=== PATIENT | male | born 1980 | race Hispanic/Latino ===

== ENCOUNTER 2023-06-28 09:53 | Emergency (ER) | payer SELFPAY ==
[2023-06-28] VITALS (20 sets, daily range): BP systolic 123–149; BP diastolic 73–100; PULSE 62–93; RESP 13–22; TEMP 36.3–36.9; O2SAT 97–100
--- NOTE | 2023-06-28 10:06 | ECG_ITS ---
Measurements Intervals [place] Rate: 78 P: 44 MD: 149 QRS: 28 QRSD: 102 T: 45 QT: 360 QTc: 411 Interpretive Statements SINUS RHYTHM INCOMPLETE RIGHT BUNDLE BRANCH BLOCK BORDERLINE ECG NO PREVIOUS ECG AVAILABLE FOR COMPARISON Electronically Signed On 06-28-2023 16:53:33 CDT by Chris Campbell D.O.
[2023-06-28 10:23] LABS: Basophils Percent Auto 0.4 % (0.2-1.2); Eosinophils Absolute Auto 0.1 K/mm3 (0-0.3); Eosinophils Percent Auto 1.4 % (0-4.4); Hematocrit 41.3 % (42.0-52.0); Hemoglobin 13.9 g/dL (14.0-18.0); Immature Granulocyte Absolute 0.01 K/mm3 (0.00-0.031); Immature Granulocyte Percent A 0.2 % (0-0.5); Lymphocytes Absolute Auto 1.35 K/mm3 (0.9-3.2); Lymphocytes Percent Auto 26.7 % (18.3-44.2); Mean Corpuscular HGB Conc 33.7 g/dl (32-36); Mean Corpuscular Hemoglobin 31.7 pg (26-34); Mean Corpuscular Volume 94.3 fl (80-100); Mean Platelet Volume 10.9 fl (7.4-10.4); Monocytes Absolute Auto 0.4 K/mm3 (0.1-0.6); Monocytes Percent Auto 7.5 % (2.6-8.5); Neutrophils Absolute Auto 3.2 K/mm3 (1.3-6.7); Neutrophils Percent Auto 63.8 % (45.5-73.1); Platelet Count Result 231 k/mm3 (150-375); Red Blood Count 4.38 M/mm3 (4.6-6.20); Red Cell Distribution Width 13.1 % (11.5-14.5); White Blood Count 5.1 K/mm3 (4.5-10.0)
[2023-06-28 10:35] LABS: Alanine Aminotransferase 24 U/L (6-50); Albumin Level 4.2 g/dL (3.5-5.1); Alkaline Phosphatase 81 U/L (38-126); Anion Gap 10 mmol/L (8-16); Aspartate Amino Transferase 32 U/L (17-59); Bilirubin,Total 0.5 mg/dL (0.2-1.3); Blood Urea Nitrogen 10 mg/dL (9-20); Calcium 8.7 mg/dL (8.4-10.2); Carbon Dioxide 22 mmol/L (22-30); Chloride 107 mmol/L (98-107); Estimated CRCL calculation 125 ml/min; Estimated Glomerular Filt Rate > 60; Glucose 122 mg/dL (65-110); Potassium 4.1 mmol/L (3.4-5.0); Sodium 139 mmol/L (137-145)
--- NOTE | 2023-06-28 11:10 | ED.DIZZY ---
HPI - Dizziness General Chief Complaint: Dizziness Stated Complaint: dizzy Time Seen by Provider: 06/28/23 11:10 Source: patient and family (friend) Mode of arrival: ambulatory Limitations: no limitations History of Present Illness HPI Narrative: Patient is a 43-year-old male who denies any past medical history presents emergency department today ambulatory with a steady gait with a friend for evaluation of dizziness that is worse with certain movements of his head. Patient states has been going on for approximately 3 weeks now and he has also had elevated blood pressure. He does not have a primary care provider. Denies any known history of hypertension or being on medications. Patient denies any vomiting, visual changes, numbness or tingling upper lower extremities, headache, chest pain, shortness and breath for, fever, chills, ear pain. 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 He states that this started about 3 weeks ago and was extremely hot out. He states that he did fall off a horse and struck his head but he had no loss of consciousness. Related Data Allergies Allergy/AdvReac Type Severity Reaction Status Date / Time No Known Allergies Allergy Verified 06/28/23 10:06 Review of Systems Review of Systems: CONSTITUTIONAL: Denies fever, chills, or sweats. EYES: Denies visual changes, redness, or discharge. ENT: Denies rhinorrhea, congestion, sore throat, or otalgia. CARDIOVASCULAR: Denies chest pain, palpitations, or edema. RESPIRATORY: Denies cough or dyspnea. GASTROINTESTINAL: intermittent nausea. Denies abdominal pain, vomiting, or diarrhea. GENITOURINARY: Denies dysuria or hematuria. SKIN: Denies rash or itching. MUSCULOSKELETAL: Denies back pain, joint pain, or myalgia. NEUROLOGIC: dizziness worse with positioning. Denies headache, numbness, or weakness. PSYCHIATRIC: Denies anxiety or depression. All systems reviewed & are unremarkable except as noted in HPI and below Exam Narrative: GENERAL: Well-appearing, well-nourished, and in no acute distress. HEAD: Normocephalic, atraumatic.negative mitchell's sign. EYES: PERRLA and EOMI. ENT: Nares clear, no rhinorrhea or epistaxis. Mucous membranes moist.no mastoid tenderness. NECK: Supple.full ROM noted. CHEST: Clear to auscultation. No respiratory distress. HEART: Regular rate and rhythm. No murmur heard. Normal peripheral pulses. ABDOMEN: Soft, nontender, nondistended, normal active bowel sounds. EXTREMITIES: Normal range of motion. No edema. SKIN: Warm, dry, no rash. NEURO: No focal deficits. Alert and oriented x3. UE and LE distal pulses, sensation, cap refill, temperature, patellar reflex and strength intact and equal bilaterally.?Cranial nerves grossly intact. steady gait. negative Romberg PSYCH: Normal mood and affect. Course Vital Signs Vital signs: Vital Signs Temperature 97.4 F L 06/28/23 10:01 Pulse Rate 84 06/28/23 10:01 Respiratory Rate 18 06/28/23 10:01 Blood Pressure 149/83 H 06/28/23 10:01 Pulse Oximetry 100 06/28/23 10:01 Oxygen Delivery Room Air 06/28/23 10:01 Temperature 98.4 F 06/28/23 13:16 Pulse Rate 68 06/28/23 13:16 Respiratory Rate 18 06/28/23 13:16 Blood Pressure 140/90 06/28/23 13:16 Pulse Oximetry 100 06/28/23 13:16 Oxygen Delivery Room Air 06/28/23 10:01 MDM - Dizziness MDM Narrative Medical decision making narrative: 43-year-old presents for her dizziness that is consistent with positional vertigo. low concern for posterior CVA.HE has no diplopia, dysarthria, dysphagia, dystaxia . The patient has no primary. He does have elevated blood pressure while here. His labs are unremarkable without significant abnormalities. His glucose is just a little bit elevated 122. He is alert ordered x4. Normal neurological exam. He did hit his head about 3 weeks ago so I did offer CT scan of the head to rule out any underlying traumatic injur
[2023-06-28] MEDS: MECLIZINE HCL 25 MG TABLET PO (13:08)
== END 2023-06-28 13:21 | disposition home or self-care (01) ==
PROVIDERS: Emergency Medicine; Emergency Provider Nurse Practitioner
DX: H81.13 Benign paroxysmal vertigo, bilateral (principal); R03.0 Elevated blood-pressure reading, without diagnosis of hypertension; I45.10 Unspecified right bundle-branch block
CPT/HCPCS: 36415; 80053; 85025; 93005; 99284; A9270